=== PATIENT | male | born 1955 | race Caucasian/White ===

== ENCOUNTER 2020-10-03 08:30 | Outpatient (REF) | payer SELFPAY ==
--- NOTE | 2020-10-03 10:35 | XR_ITS ---
EXAMINATION: XR FEMUR, LEFT CLINICAL INFORMATION: M79.605 - Pain in left leg COMPARISON: None TECHNIQUE: AP x 2 and lateral x 2 views of the left femur were obtained for 4 views. FINDINGS: There is a fracture superior aspect greater trochanter. No significant displacement or distraction. The femoral head and neck and femur shaft appear intact. There is no dislocation or destructive process. Hip joint shows no narrowing or erosive change. There are tricompartment degenerative changes left knee with associated chondrocalcinosis. XR/XR femur LT 2V IMPRESSION: 1. Fracture superior aspect greater trochanter. No dislocation or destructive process. 2. 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
== END 2020-10-03 08:31 | disposition home or self-care (01) ==
LOC: HO.HOSX 08:30
PROVIDERS: Visit Provider Orthopaedic Surgery
DX: S72.112D Displaced fracture of greater trochanter of left femur, subsequent encounter for closed fracture with routine healing (principal)
CPT/HCPCS: 73552

== ENCOUNTER 2020-11-03 07:41 | Outpatient (REF) | payer OTHER, SELFPAY | END 2020-11-03 07:42 | disposition home or self-care (01) | LOC: HO.HOSX 07:41 | PROVIDERS: Visit Provider Orthopaedic Surgery | DX: Z13.89 Encounter for screening for other disorder (principal) ==

== ENCOUNTER 2020-11-04 07:52 | Outpatient (REF) | payer OTHER, SELFPAY ==
--- NOTE | ~2020-11-04 | XR_ITS ---
EXAMINATION: XR PELVIS CLINICAL INFORMATION: Pain. COMPARISON: Left femur 10/03/2020 TECHNIQUE: AP view of the pelvis. FINDINGS: Redemonstrated is a comminuted fracture of the superior aspect of the greater trochanter, with mild displacement/distraction. The fracture planes remaining visible. Normal articulation of bilateral hip joints, maintain joint space. No acute pelvic fractures are seen. XR/XR pelvis 1-2V IMPRESSION: Comminuted mildly displaced/distracted fracture of the superior aspect of the left greater trochanter. Fracture planes remaining visible.
== END 2020-11-04 07:53 | disposition home or self-care (01) ==
LOC: HO.XRAY 07:52
PROVIDERS: Visit Provider Orthopaedic Surgery
DX: M70.62 Trochanteric bursitis, left hip (principal)
CPT/HCPCS: 72170

== ENCOUNTER 2020-11-21 12:05 | Outpatient (REF) | payer OTHER, SELFPAY ==
--- NOTE | ~2020-11-21 | XR_ITS ---
EXAMINATION: XR PELVIS CLINICAL INFORMATION: Fracture COMPARISON: Previous x-ray most recent 11/04/2020 TECHNIQUE: AP view of the pelvis. FINDINGS: Left greater trochanteric fracture appears unchanged from previous exam. There is some surrounding bony callus formation. Fracture line is still seen. There is mild arthritis at both hip joints. Bones of the pelvis are unremarkable. Soft tissues are unremarkable. XR/XR pelvis 1-2V IMPRESSION: No change in left greater trochanter fracture from 11/04/2020 exam.
== END 2020-11-21 12:06 | disposition home or self-care (01) ==
LOC: HO.HOSX 12:05
PROVIDERS: Visit Provider Orthopaedic Surgery
DX: S72.112D Displaced fracture of greater trochanter of left femur, subsequent encounter for closed fracture with routine healing (principal)
CPT/HCPCS: 72170; 99212

== ENCOUNTER 2021-01-02 08:13 | Outpatient (REF) | payer OTHER, SELFPAY ==
--- NOTE | ~2021-01-02 | XR_ITS ---
EXAMINATION: XR PELVIS CLINICAL INFORMATION: Pain COMPARISON: Previous x-ray November 2020 TECHNIQUE: AP view of the pelvis. FINDINGS: There is a fracture of the left greater trochanter that appears unchanged. No other fracture is seen. There is mild arthritis at both hip joints. Bones of the pelvis are unremarkable. There is soft tissue arterial calcification. XR/XR pelvis 1-2V IMPRESSION: No change in left greater trochanter fracture from previous exams.
== END 2021-01-02 08:14 | disposition home or self-care (01) ==
LOC: HO.HOSX 08:13
PROVIDERS: Visit Provider Orthopaedic Surgery
DX: M25.552 Pain in left hip (principal); S72.112A Displaced fracture of greater trochanter of left femur, initial encounter for closed fracture
CPT/HCPCS: 72170; 99212